=== PATIENT | female | born 1935 | race Caucasian/White ===

== ENCOUNTER 2021-05-22 09:19 | Inpatient (IN) | payer OTHER ==
[~2021-05-22] VITALS: Ht 165.1 cm; Wt 64.5 kg
[2021-05-22 10:17] LABS: BASOPHIL 0.2 % (0-2); EOSINOPHIL 0.1 % (0-7); HCT 46.5 % (37.0-47.0); LYMPHOCYTE 4.7 % (15-48); MCH 28.5 pg (25.0-31.0); MCHC 32.3 g/dL (32.0-36.0); MCV 88.4 fL (78.0-100.0); MONOCYTE 4.6 % (0-12); MPV 10.9 fL (6.0-9.5); NEUTROPHIL 89.8 % (41-80); NRBC 0; PLT 160 K/uL (150-400); RBC 5.26 M/uL (4.20-5.40); RDW 13.8 % (11.5-14.0)
[2021-05-22 10:37] LABS: BUN/CREAT RATIO (CALC) 17.1 RATIO; CREATININE 1.29 mg/dL (0.51-0.95); POTASSIUM 3.6 mmol/L (3.5-5.1)
[2021-05-22] MEDS ORDERED: TOPROL XL 50 MG50 MG PO (12:54)
[2021-05-22] MEDS ORDERED: ASPIRIN EC81 MG PO (12:55)
[2021-05-22] MEDS ORDERED: MULTIVITAMINS1 EAC2 PO (12:56)
[2021-05-22 13:22] LABS: BILIRUBIN NEGATIVE (NEGATIVE); BLOOD TRACE-INTACT Ery/uL (NEGATIVE); CLARITY HAZY (CLEAR); COLOR YELLOW (YELLOW); GLUCOSE (U) NORMAL (NORMAL); LEUKOCYTES 2+ Leu/uL (NEGATIVE); NITRITE NEGATIVE (NEGATIVE); PROTEIN 1+ mg/dL (NEGATIVE); SPECIFIC GRAVITY 1.015 (1.001-1.030); UROBILINOGEN 0.2 mg/dL (0.2-1.0); pH 6.5 (5.0-9.0)
[2021-05-22 13:34] LABS: BACTERIA 4+; TRANSITIONAL EPITHELIAL CELLS RARE; URINARY WBC TNTC
[2021-05-22 13:36] LABS: INR 1.04 (0.9-1.2); PTT 27.1 SECONDS (24.4-34.7)
[2021-05-22 13:42] LABS: BUN/CREAT RATIO (CALC) 18.3 RATIO; CREATININE 1.26 mg/dL (0.51-0.95); MAGNESIUM 1.8 mg/dL (1.8-2.4)
[2021-05-23 06:38] LABS: BASOPHIL 0.2 % (0-2); HGB 13.1 g/dl (12.5-16.0); LYMPHOCYTE 6.1 % (15-48); MCH 28.5 pg (25.0-31.0); MCV 89.3 fL (78.0-100.0); MONOCYTE 6.7 % (0-12); MPV 10.5 fL (6.0-9.5); NEUTROPHIL 85.6 % (41-80); NRBC 0; PLT 146 K/uL (150-400); RBC 4.59 M/uL (4.20-5.40); RDW 13.9 % (11.5-14.0); WBC 11.9 K/uL (4.0-10.5)
[2021-05-23 07:05] LABS: BUN/CREAT RATIO (CALC) 14.8 RATIO; CREATININE 1.42 mg/dL (0.51-0.95); POTASSIUM 4.5 mmol/L (3.5-5.1)
[2021-05-24 07:14] LABS: BASOPHIL 0.2 % (0-2); EOSINOPHIL 0.4 % (0-7); HCT 34.2 % (37.0-47.0); LYMPHOCYTE 5.6 % (15-48); MCH 28.6 pg (25.0-31.0); MCHC 32.2 g/dL (32.0-36.0); MCV 89.1 fL (78.0-100.0); MONOCYTE 6.7 % (0-12); MPV 11.6 fL (6.0-9.5); NEUTROPHIL 86.7 % (41-80); NRBC 0; PLT 100 K/uL (150-400); RBC 3.84 M/uL (4.20-5.40); RDW 13.9 % (11.5-14.0); WBC 11.6 K/uL (4.0-10.5)
[2021-05-24 07:41] LABS: BUN/CREAT RATIO (CALC) 16.3 RATIO; CREATININE 1.53 mg/dL (0.51-0.95); MAGNESIUM 1.6 mg/dL (1.8-2.4); POTASSIUM 4.4 mmol/L (3.5-5.1)
[2021-05-26 07:08] LABS: BASOPHIL 0.3 % (0-2); EOSINOPHIL 0.8 % (0-7); HGB 10.5 g/dl (12.5-16.0); LYMPHOCYTE 6.9 % (15-48); MCH 28.8 pg (25.0-31.0); MCHC 32.8 g/dL (32.0-36.0); MCV 87.9 fL (78.0-100.0); MPV 10.8 fL (6.0-9.5); NEUTROPHIL 84.5 % (41-80); NRBC 0; PLT 158 K/uL (150-400); RBC 3.64 M/uL (4.20-5.40); RDW 14.1 % (11.5-14.0); WBC 9.7 K/uL (4.0-10.5)
[2021-05-26 07:31] LABS: BUN/CREAT RATIO (CALC) 19.6 RATIO; CREATININE 1.58 mg/dL (0.51-0.95); PHOSPHORUS 2.9 mg/dL (2.6-4.7); POTASSIUM 4.5 mmol/L (3.5-5.1)
[2021-05-26 07:33] LABS: MAGNESIUM 2.2 mg/dL (1.8-2.4)
[2021-05-27 05:35] LABS: BASOPHIL 0.4 % (0-2); EOSINOPHIL 3.5 % (0-7); HCT 34.7 % (37.0-47.0); MCH 28.4 pg (25.0-31.0); MCHC 31.7 g/dL (32.0-36.0); MCV 89.4 fL (78.0-100.0); MPV 10.2 fL (6.0-9.5); NEUTROPHIL 73.6 % (41-80); NRBC 0; PLT 194 K/uL (150-400); RBC 3.88 M/uL (4.20-5.40); RDW 14.2 % (11.5-14.0); WBC 8.3 K/uL (4.0-10.5)
[2021-05-27 05:55] LABS: BUN/CREAT RATIO (CALC) 19.1 RATIO; CREATININE 1.57 mg/dL (0.51-0.95); MAGNESIUM 2.1 mg/dL (1.8-2.4); POTASSIUM 4.4 mmol/L (3.5-5.1)
[2021-05-27] MEDS ORDERED: OXYCODONE-ACET1 EAC1 PO (10:09)
[2021-05-27] MEDS ORDERED: ELIQUIS2.5 MG PO (10:09)
== END 2021-05-27 11:55 | disposition home health service (06) | DRG 521 ==
LOC: FER 09:19 → FMS 11:18
PROVIDERS: Emergency Medicine; Legal Medicine; ADMIT Internal Medicine
PROC: 3E03329 Introduction of Other Anti-infective into Peripheral Vein, Percutaneous Approach (ICD-10-PCS; 2021-05-22)
PROC: 0SRS0JA Replacement of Left Hip Joint, Femoral Surface with Synthetic Substitute, Uncemented, Open Approach (ICD-10-PCS; principal; 2021-05-22 17:00)
DX: S72.012A Unspecified intracapsular fracture of left femur, initial encounter for closed fracture (principal); A41.89 Other specified sepsis; R65.20 Severe sepsis without septic shock; N30.00 Acute cystitis without hematuria; N17.9 Acute kidney failure, unspecified; N18.4 Chronic kidney disease, stage 4 (severe); M87.9 Osteonecrosis, unspecified; B96.1 Klebsiella pneumoniae [K. pneumoniae] as the cause of diseases classified elsewhere; Z20.822 Contact with and (suspected) exposure to COVID-19; I12.9 Hypertensive chronic kidney disease with stage 1 through stage 4 chronic kidney disease, or unspecified chronic kidney disease; E83.42 Hypomagnesemia; W01.0XXA Fall on same level from slipping, tripping and stumbling without subsequent striking against object, initial encounter; Z79.82 Long term (current) use of aspirin; Z79.899 Other long term (current) drug therapy; Z90.5 Acquired absence of kidney
CPT/HCPCS: 36415; 70450; 71045; 73501; 73502; 76000; 80048; 81001; 83735; 84100; 85025; 85610; 85730; 86850; 86900; 86901; 87076; 87088; 87186; 88305; 93005; 94010; 96374; 96375; 97110; 97116; 97161; 97166; 97530; 97530-GP; C1776; J0171; J0696; J0697; J2250; J2270; J2370; J2405; J2704; J2795; J3010; J3475; J7030; J7120; U0002